=== PATIENT | female | born 1980 | race Caucasian/White ===

== ENCOUNTER 2018-05-30 07:40 | Emergency (ER) | payer BC ==
[~2018-05-30] VITALS: Ht 152.4 cm; Wt 49.9 kg
[2018-05-30 07:53] VITALS: Ht 152.4 cm; Wt 49.9 kg
[2018-05-30 08:18] LABS: PLATELET COUNT 221 x10^3mcL (130-400)
[2018-05-30 08:25] LABS: CALCIUM 8.7 mg/dL (8.5-10.1); CARBON DIOXIDE 24.3 mmol/L (21-32); CHLORIDE SERUM 103 mmol/L (98-107); CREATININE SERUM 0.8 mg/dL (0.6-1.0); GFR1 > 60 mL/min; GLUCOSE SERUM 108 mg/dL (74-106); POTASSIUM SERUM 3.4 mmol/L (3.5-5.1); SODIUM SERUM 137 mmol/L (136-145)
[2018-05-30 08:30] LABS: ALBUMIN 3.9 g/dL (3.4-5.0); ALKALINE PHOSPHATASE 48 U/L (46-116); ALT/SGPT 18 U/L (14-59); AMYLASE 75 U/L (25-115); AST/SGOT 11 U/L (15-37); BILIRUBIN TOTAL 0.77 mg/dL (0.20-1.00); LIPASE 132 IU/L (73-393); TOTAL PROTEIN, SERUM 7.1 g/dL (6.4-8.2)
[2018-05-30 08:57] LABS: BAND NEUTROPHIL 2 % (0-10); BASOPHIL 0 % (0-2); MONOCYTE 2 % (0-7); SEGMENTED NEUTROPHILS 86 % (37-75)
[2018-05-30 08:58] LABS: PLATELET MORPHOLOGY PLATELETS DECREASED; rbc morphology (normal/abnorm) ABNORMAL (NORMAL)
[2018-05-30 09:45] VITALS: BP 98/64
== END 2018-05-30 09:45 | disposition home or self-care (01) ==
LOC: ED 07:40
PROVIDERS: Emergency Medicine
DX: R10.13 Epigastric pain (principal); R11.0 Nausea
CPT/HCPCS: J1885

== ENCOUNTER 2020-02-13 02:20 | Emergency (ER) | payer BC ==
[~2020-02-13] VITALS: Ht 152.4 cm; Wt 50.8 kg
[2020-02-13 02:25] VITALS: Ht 152.4 cm; Wt 50.8 kg
[2020-02-13 03:10] LABS: PLATELET COUNT 215 x10^3mcL (130-400); RED CELL DISTRIBUTION WIDTH 12.6 % (11.5-14.5)
[2020-02-13 03:21] LABS: CALCIUM 8.7 mg/dL (8.5-10.1); CHLORIDE SERUM 103 mmol/L (98-107); CREATININE SERUM 0.8 mg/dL (0.6-1.0); GFR1 > 60 mL/min; GLUCOSE SERUM 108 mg/dL (74-106); POTASSIUM SERUM 3.3 mmol/L (3.5-5.1); SODIUM SERUM 136 mmol/L (136-145)
[2020-02-13 03:24] LABS: ALBUMIN 3.6 g/dL (3.4-5.0); ALKALINE PHOSPHATASE 35 U/L (46-116); ALT/SGPT 15 U/L (14-59); AST/SGOT 13 U/L (15-37); CHOLESTEROL 135 mg/dL (<200); CHOLESTEROL/HDL RATIO 2.5; HDL CHOLESTEROL 55 mg/dL (40-60); LIPASE 132 IU/L (73-393); TOTAL PROTEIN, SERUM 6.8 g/dL (6.4-8.2); TRIGLYCERIDES 45 mg/dL (<150)
[2020-02-13 04:00] VITALS: BP 99/63
== END 2020-02-13 04:00 | disposition home or self-care (01) ==
LOC: ED 02:20
PROVIDERS: Specialist
DX: R07.89 Other chest pain (principal); E87.6 Hypokalemia
CPT/HCPCS: 83880; Q0092

== ENCOUNTER 2020-02-17 02:43 | Emergency (ER) | payer BC ==
[~2020-02-17] VITALS: Ht 152.4 cm; Wt 50.8 kg
[2020-02-17 02:47] VITALS: Ht 152.4 cm; Wt 50.8 kg
[2020-02-17 04:15] LABS: BASOPHIL % 0.3 % (0-2); PLATELET COUNT 215 x10^3mcL (130-400); RED CELL DISTRIBUTION WIDTH 12.7 % (11.5-14.5)
[2020-02-17 04:29] LABS: CALCIUM 8.7 mg/dL (8.5-10.1); CARBON DIOXIDE 24.4 mmol/L (21-32); CHLORIDE SERUM 101 mmol/L (98-107); CREATININE SERUM 0.9 mg/dL (0.6-1.0); GFR1 > 60 mL/min; GLUCOSE SERUM 103 mg/dL (74-106); POTASSIUM SERUM 3.2 mmol/L (3.5-5.1); SODIUM SERUM 137 mmol/L (136-145)
[2020-02-17 04:33] LABS: ALKALINE PHOSPHATASE 43 U/L (46-116); ALT/SGPT 15 U/L (14-59); AST/SGOT 13 U/L (15-37); BILIRUBIN TOTAL 0.57 mg/dL (0.20-1.00); LACTIC DEHYDROGENASE (LDH) 132 U/L (100-190); TOTAL PROTEIN, SERUM 7.5 g/dL (6.4-8.2)
[2020-02-17 06:34] VITALS: BP 119/40
== END 2020-02-17 06:34 | disposition home or self-care (01) ==
LOC: ED 02:43
PROVIDERS: Emergency Medicine
DX: N92.0 Excessive and frequent menstruation with regular cycle (principal); Z20.828 Contact with and (suspected) exposure to other viral communicable diseases
CPT/HCPCS: Q0092; U0003-CS